=== PATIENT | female | born 1990 | race American Indian/Alaskan Native ===

== ENCOUNTER 2021-10-14 07:59 | Emergency (ER) | payer OTHER ==
[2021-10-14 08:10] VITALS: BP 132/93; PULSE 79; TEMP 98.3; BMI 34.3
[2021-10-14] MEDS ORDERED: KETOROLAC TROMETHAMINE 60 MG/2 ML VIAL IM ONE (08:28)
[2021-10-14] MEDS ORDERED: LIDOCAINE 5% TOPICAL PATCH TP ONE (08:28)
[2021-10-14] MEDS ORDERED: LIDOCAINE 5% TOPICAL PATCH ONE (08:44)
[2021-10-14] MEDS ORDERED: KETOROLAC TROMETHAMINE 30 MG/1 ML VIAL ONE (08:44)
== END 2021-10-14 10:33 | disposition home or self-care (01) ==
LOC: JERFT 07:59
PROC: 3E0233Z Introduction of Anti-inflammatory into Muscle, Percutaneous Approach (ICD-10-PCS; principal; 2021-10-14)
DX: M54.50 Low back pain, unspecified (principal); W01.0XXA Fall on same level from slipping, tripping and stumbling without subsequent striking against object, initial encounter
CPT/HCPCS: 72100-TC-FY; 99285-25

== ENCOUNTER 2022-09-27 00:40 | Emergency (ER) | payer OTHER ==
[2022-09-27 00:49] VITALS: BP 125/80; RESP 20; TEMP 98.4; BMI 33.2
[2022-09-27] MEDS ORDERED: ONDANSETRON 4 MG/2 ML VIAL IVPUSH ONE (01:52)
[2022-09-27] MEDS ORDERED: SODIUM CHLORIDE 0.9% 500 ML INFUS.BAG IV ONE (01:52)
[2022-09-27] MEDS ORDERED: MAG HYDROX/AL HYDROX/SIMETH 30 ML UNIT-DOSE CUP PO ONE (01:53)
[2022-09-27] MEDS ORDERED: FAMOTIDINE 20 MG/50 ML IVPB 20 MG/50 ML MG IVPB ONE ×2 (01:53→03:12)
[2022-09-27] MEDS ORDERED: MAG HYDROX/AL HYDROX/SIMETH 30 ML UNIT-DOSE CUP ONE (03:12)
[2022-09-27] MEDS ORDERED: ONDANSETRON 4 MG/2 ML VIAL ONE (03:12)
[2022-09-27 03:48] LABS: BASO % 0.3 % (0-2.0); EOS % 0.4 % (0-4.5); HEMATOCRIT 38.2 % (32.4-45.2); HEMOGLOBIN 12.5 GM/dL (10.7-15.3); LYMPH % 15.8 % (8-40); MCH 24.9 pg (25.7-33.7); MCHC 32.6 g/dl (32.0-36.0); MEAN CELL VOLUME 76.5 fl (80-96); MEAN PLT VOLUME 7.2 fl (7.5-11.1); MONO % 5.9 % (3.8-10.2); NEUT % 77.6 % (42.8-82.8); PLATELET COUNT 417 10^3/uL (134-434); RDW 13.7 % (11.6-15.6); WHITE BLOOD COUNT 9.2 K/mm3 (4.0-10.0)
[2022-09-27 04:05] LABS: CALCIUM 8.8 mg/dL (8.5-10.1)
[2022-09-27 04:06] LABS: ALBUMIN 3.3 g/dl (3.4-5.0); BLOOD UREA NITROGEN 12.2 mg/dL (7-18)
[2022-09-27 04:09] LABS: CREATININE 0.6 mg/dL (0.55-1.3)
[2022-09-27 04:10] LABS: BILIRUBIN,TOTAL 0.8 mg/dL (0.2-1); TOT PROT 6.8 g/dl (6.4-8.2)
[2022-09-27 05:21] LABS: EPI CELLS 23 /uL (0-25.1); HYALINE CASTS 0 /uL (0-3.1); URINE APPEARANCE CLEAR; URINE BACTERIA 1213 /uL (0-1359); URINE BILIRUBIN NEGATIVE (NEGATIVE); URINE COLOR YELLOW; URINE GLUCOSE (UA) NEGATIVE (NEGATIVE); URINE KETONE NEGATIVE (NEGATIVE); URINE LEUK ESTERASE TRACE (NEGATIVE); URINE NITRITE NEGATIVE (NEGATIVE); URINE PROTEIN NEGATIVE (NEGATIVE); URINE RBC 41 /uL (0-23.9); URINE WBC 26 /uL (0-25.8)
[2022-09-27 05:30] VITALS: PULSE 99
== END 2022-09-27 05:30 | disposition home or self-care (01) ==
LOC: JER 00:40
DX: R11.2 Nausea with vomiting, unspecified (principal); R42 Dizziness and giddiness
CPT/HCPCS: 36415; 80053; 81003; 83690; 84439; 84443; 84703; 85025; 87086; 93005; 93010; 99284-25

== ENCOUNTER 2022-12-07 10:53 | Emergency (ER) | payer OTHER ==
[2022-12-07] MEDS ORDERED: IBUPROFEN 400 MG TABLET (FP) PO ONE ×2 (11:21→11:43)
[2022-12-07] MEDS ORDERED: LIDOCAINE 5% TOPICAL PATCH TP ONE (11:22)
[2022-12-07] MEDS ORDERED: ACETAMINOPHEN 325 MG TABLET (FP) PO ONE (11:22)
[2022-12-07 11:41] VITALS: TEMP 98.3; BMI 33.0
[2022-12-07] MEDS ORDERED: ACETAMINOPHEN 325 MG TABLET (FP) ONE (11:43)
[2022-12-07] MEDS ORDERED: LIDOCAINE 5% TOPICAL PATCH ONE (11:43)
[2022-12-07 12:44] VITALS: BP 107/74; PULSE 93; RESP 20
[2022-12-07] MEDS ORDERED: LIDOCAINE PATCH REMOVAL MC ONE (22:00)
== END 2022-12-07 13:40 | disposition home or self-care (01) ==
LOC: JER 10:53
DX: M54.50 Low back pain, unspecified (principal); M79.604 Pain in right leg; V49.40XA Driver injured in collision with unspecified motor vehicles in traffic accident, initial encounter; Y93.I9 Activity, other involving external motion
CPT/HCPCS: 99283-25